=== PATIENT | female | born 1950 ===

== ENCOUNTER 2024-09-11 06:19 | Day surgery (SDC) | payer OTHER, SELFPAY | END 2024-09-11 10:39 | disposition home or self-care (01) | LOC: GI 06:19 | PROVIDERS: ATTENDING PHYSICIAN Surgery | DX: Z12.11 Encounter for screening for malignant neoplasm of colon (principal); K64.4 Residual hemorrhoidal skin tags; K64.8 Other hemorrhoids; K57.30 Diverticulosis of large intestine without perforation or abscess without bleeding | CPT/HCPCS: G0121 ==